=== PATIENT | male | born 1975 | race Caucasian/White ===

== ENCOUNTER 2021-03-06 21:42 | Emergency (ER) | payer BC, OTHER ==
[~2021-03-06 21:42] MED LIST: IBUP200C97 PO; LID5T TP
--- NOTE | 2021-03-06 22:00 | NUR ---
PATIENT CALL TO TRIAGE. HE WENT HOME, DONT WANT TO WAIT PATIENT LEFT WITHOUT BEING SEEN BY DR. BERMEO. NO FURTHER CARE PROVIDED FOR PATIENT.
== END 2021-03-06 22:00 | disposition left against medical advice (07) ==
LOC: MED 21:42
DX: M79.606 Pain in leg, unspecified (principal); Z53.21 Procedure and treatment not carried out due to patient leaving prior to being seen by health care provider